=== PATIENT | male | born 1925 | race Hispanic/Latino ===

== ENCOUNTER 2016-11-15 14:37 | Emergency (ER) | payer MEDICARE ==
[2016-11-15 15:18] VITALS: BP 121/84; PULSE 88; RESP 16; TEMP 98.6; O2SAT 98; BMI 24.0
[2016-11-15] MEDS ORDERED: Lidocaine 2% Inj (20ml) INFIL STA (16:14)
[2016-11-15] MEDS ORDERED: TDAP Vaccine 0.5 mL Syr IM ONE (16:14)
[2016-11-15] MEDS ORDERED: Bacitracin 500 Units/gm Oint Foilpak UD TOP ONE (16:14)
--- NOTE | 2016-11-15 16:52 | ED PDOC ---
Arrival/HPI - General Chief Complaint: Abnormal Skin Integrity Time Seen by Provider: 11/15/16 16:14 Historian: Patient - History of Present Illness Narrative History of Present Illness (Text): 11/15/16 17:45 Patient sts he was washing dishes and accidentally cut his left dorsum of thumb with the broken plate. Patient sts he is not UTD with tetanus immunization. Symptom Onset: Sudden Symptom Course: Unchanged Quality: Burning Severity Level: 3 Past Medical History - Provider Review Nursing Documentation Reviewed: Yes - Past History Past History: Non-Contributing - Tetanus Immunization Tetanus Immunization: >10 years Ago - Cardiac Hx Atrial Fibrillation: Yes - Hematological/Oncological Hx Blood Transfusions: Yes Hx Blood Transfusion Reaction: No - Musculoskeletal/Rheumatological Hx Falls: No - Genitourinary/Gynecological Hx Reproductive Disorders: No - Psychiatric Hx Depression: Yes Hx Emotional Abuse: No Hx Physical Abuse: No Hx Substance Use: No - Anesthesia Hx Anesthesia Reactions: No Hx Malignant Hyperthermia: No - Suicidal Assessment Feels Threatened In Home Enviroment: No Family/Social History - Physician Review Nursing Documentation Reviewed: Yes Family/Social History: Unknown Family HX Smoking Status: Never Smoked Hx Alcohol Use: No Hx Substance Use: No Hx Substance Use Treatment: No Allergies/Home Meds Allergies/Adverse Reactions: Allergies No Known Allergies Allergy (Verified 01/16/12 20:41) Home Medications: Home Meds Medication Instructions Recorded Confirmed Metronidazole [Flagyl] 250 mg PO TID 01/16/12 01/16/12 Multimineral/Multivitamin 1 tab PO DAILY 01/16/12 01/16/12 [[facility] Advanced Formula] Acetaminophen [Tylenol] 650 mg PO 01/26/12 01/26/12 Alprazolam [Xanax] 0.25 mg PO Q6 01/26/12 01/26/12 Ondansetron 4 mg PO 01/26/12 01/26/12 Pantoprazole Sodium 40 mg PO 01/26/12 01/26/12 Sotalol Hydrochloride [Sotalol] 80 mg PO 01/26/12 01/26/12 Review of Systems - Physician Review All systems were reviewed & negative as marked: Yes - Review of Systems Skin: Laceration Physical Exam Vital Signs Reviewed: Yes Vital Signs Temp Pulse Resp BP Pulse Ox 11/15/16 15:18 98.6 F 88 16 121/84 98 11/15/16 15:17 98.6 F 88 16 121/84 98 Temperature: Afebrile Blood Pressure: Normal Pulse: Regular Respiratory Rate: Normal Appearance: Positive for: Well-Appearing, Non-Toxic, Comfortable Pain Distress: None Mental Status: Positive for: Alert and Oriented X 3 - Systems Exam Head: Present: Atraumatic, Normocephalic Pupils: Present: PERRL Extroacular Muscles: Present: EOMI Respiratory/Chest: Present: Clear to Auscultation, Good Air Exchange Upper Extremity: Present: Normal ROM, NORMAL PULSES, Neurovascularly Intact, Other (left thumb, dorsum of the proximal phalanx with 1.5 cm linear laceration , no active bleeding, no gross contamination). No: Cyanosis, Edema, Tenderness , Swelling, Erythema Lower Extremity: Present: Normal Inspection Neurological: Present: GCS=15, Speech Normal Skin: Present: Warm, Dry, Normal Color. No: Rashes Psychiatric: Present: Alert, Oriented x 3, Normal Insight, Normal Concentration , Normal Mood Medical Decision Making ED Course and Treatment: 11/15/16 17:56 Wound was closed with suturing. Tetanus immunization was given. Reassessment Condition: Improved - Medication Orders Current Medication Orders: Discontinued Medications Bacitracin (Bacitracin) 1 ea TOP ONCE ONE Stop: 11/15/16 16:15 Last Admin: 11/15/16 16:28 Dose: 1 ea Lidocaine HCl (Lidocaine 2% 20ml Vial) 20 ml INFIL STAT STA Stop: 11/15/16 16:15 Last Admin: 11/15/16 16:28 Dose: 20 ml Tetanus/Reduced Diphtheria/Acell Pertussis (Boostrix Vaccine Inj) 0.5 ml IM .ONCE ONE Stop: 11/15/16 16:15 Last Admin: 11/15/16 16:25 Dose: 0.5 ml Procedure: Wound Repair - Time Out Time Out: Side verified - Consent Obtained Consent obtained: Verbal - Performed by Performed by: Mid-level Provider - Indications Indication(s):: Laceration - Location Location:: Left Finger:: Thumb Shape:: Linear Dimensions Length cm: 1.5 cm - Anesthetic Technique Anesthetic Technique: Regional block Local/Regional Anesthetic:: Lidocaine 2% - Irrigated Irrigated with ml of normal saline: 500 ml - Complexity Complexity:: Simple (one layer) - Wound repair method Sutures:: # (3), Size (4-0), Type (nylon), Technique (interrupted) - Patient tolerated procedure Patient Tolerated Procedure:: Well Disposition/Present on Arrival - Present on Arrival Any Indicators Present on Arrival: No History of DVT/PE: No History of Uncontrolled Diabetes: No Urinary Catheter: No History of Decub. Ulcer: No History Surgical Site Infection Following: None - Disposition Have Diagnosis and Disposition been Completed?: Yes Diagnosis: Finger laceration Disposition: HOME/ ROUTINE Disposition Time: 16:50 Patient Plan: Discharge Condition: IMPROVED Discharge Instructions (ExitCare): Finger Laceration (ED) Additional Instructions: Follow up with PMD within 2-3 days. Return to ED if feel worse. Suture removal in 7-8 days. Prescriptions: Cephalexin [Keflex] 500 mg PO BID #10 capsule Referrals: PCP,NO [Primary Care Provider] - Follow up with primary
== END 2016-11-15 16:58 | disposition home or self-care (01) ==
LOC: ED 14:37
DX: S61.012A Laceration without foreign body of left thumb without damage to nail, initial encounter (principal); W45.8XXA Other foreign body or object entering through skin, initial encounter; Y93.G1 Activity, food preparation and clean up; Y92.89 Other specified places as the place of occurrence of the external cause; Z23 Encounter for immunization

== ENCOUNTER 2016-11-23 15:15 | Emergency (ER) | payer MEDICARE ==
[2016-11-23 15:37] VITALS: BP 124/72; PULSE 82; RESP 16; TEMP 98.6; O2SAT 99; BMI 23.7
--- NOTE | 2016-11-23 15:55 | ED PDOC ---
Arrival/HPI - General Chief Complaint: Suture/Staple Removal Time Seen by Provider: 11/23/16 15:54 Historian: Patient - History of Present Illness Narrative History of Present Illness (Text): 11/23/16 18:23 Patient came to Ed to remove sutures from the left thumb. Sutures were placed on 11/15/2016. Patient has no complains at present time. Past Medical History - Provider Review Nursing Documentation Reviewed: Yes - Past History Past History: Non-Contributing - Tetanus Immunization Tetanus Immunization: >10 years Ago - Cardiac Hx Atrial Fibrillation: Yes - Hematological/Oncological Hx Blood Transfusions: Yes Hx Blood Transfusion Reaction: No - Musculoskeletal/Rheumatological Hx Falls: No - Genitourinary/Gynecological Hx Reproductive Disorders: No - Psychiatric Hx Depression: Yes Hx Emotional Abuse: No Hx Physical Abuse: No Hx Substance Use: No - Anesthesia Hx Anesthesia Reactions: No Hx Malignant Hyperthermia: No - Suicidal Assessment Feels Threatened In Home Enviroment: No Family/Social History Family/Social History: No Known Family HX Smoking Status: Never Smoked Hx Alcohol Use: No Hx Substance Use: No Hx Substance Use Treatment: No Allergies/Home Meds Allergies/Adverse Reactions: Allergies No Known Allergies Allergy (Verified 01/16/12 20:41) Review of Systems - Physician Review All systems were reviewed & negative as marked: Yes - Review of Systems Skin: Other (suture removal) Physical Exam Vital Signs Reviewed: Yes Vital Signs Temp Pulse Resp BP Pulse Ox 11/23/16 15:37 98.6 F 82 16 124/72 99 Temperature: Afebrile Blood Pressure: Normal Pulse: Regular Respiratory Rate: Normal Appearance: Positive for: Well-Appearing, Non-Toxic, Comfortable Mental Status: Positive for: Alert and Oriented X 3 - Systems Exam Upper Extremity: Present: Other (left thumb with healing wound, stiches are intact.) Skin: Present: Warm. No: Rashes, Erythematous Medical Decision Making ED Course and Treatment: 11/23/16 18:25 Sutures (#3) were removed w/o difficulties. Bacitracin cream was applied. Patient was d/c home in stable condition. Disposition/Present on Arrival - Present on Arrival Any Indicators Present on Arrival: No History of DVT/PE: No History of Uncontrolled Diabetes: No Urinary Catheter: No History of Decub. Ulcer: No History Surgical Site Infection Following: None - Disposition Have Diagnosis and Disposition been Completed?: Yes Diagnosis: Visit for suture removal Disposition: HOME/ ROUTINE Disposition Time: 15:55 Patient Plan: Discharge Condition: STABLE Discharge Instructions (ExitCare): Stitches Removal (ED) Additional Instructions: Follow up with PMD as needed. Return to Ed if feel worse. Referrals: PCP,NO [Primary Care Provider] - Follow up with primary Forms: [employer] [facility] (Croatian)
== END 2016-11-23 16:12 | disposition home or self-care (01) ==
LOC: ED 15:15
DX: Z48.02 Encounter for removal of sutures (principal); I48.91 Unspecified atrial fibrillation

== ENCOUNTER 2017-05-20 09:42 | Inpatient (IN) | payer MEDICARE ==
[2017-05-20 11:46] LABS: BASO # 0.06 K/mm3 (0.0-2.0); BASO % 0.5 % (0.0-3.0); EOS # 0.1 (0.0-0.7); EOS % 1.3 % (1.5-5.0); GRAN # 7.63 (1.4-6.5); GRAN % 68.2 % (50.0-68.0); HEMOGLOBIN 11.3 g/dL (14.0-18.0); LYMPH # 1.7 (1.2-3.4); LYMPH % 15.2 % (22.0-35.0); MEAN CELL VOLUME 101.7 fl (80.0-105.0); MEAN CORPUSCULAR HEMOGLOBIN 32.6 pg (25.0-35.0); MONO # 1.7 (0.1-0.6); MONO % 14.8 % (1.0-6.0); RBC 3.47 10^6/uL (3.5-6.1); RED CELL DISTRIBUTION WIDTH 14.2 % (11.5-14.5); WHITE BLOOD COUNT 11.2 10^3/ul (4.5-11.0)
--- NOTE | 2017-05-20 12:05 | RAD ---
HISTORY: Possible CHF COMPARISON: 01/18/2012 FINDINGS: LUNGS: There is some mild crowding at the lung bases. Mild stable interstitial change or scarring is seen in the right upper lobe. No new infiltrate is clearly seen. PLEURA: No significant pleural effusion identified, no pneumothorax apparent. CARDIOVASCULAR: Mildly enlarged heart. Calcific atherosclerotic change of the aorta is stable. OSSEOUS STRUCTURES: No significant abnormalities. VISUALIZED UPPER ABDOMEN: Normal. OTHER FINDINGS: None. IMPRESSION: Stable mild interstitial change or scarring in the right upper lobe. No new infiltrate or CHF.
[2017-05-20 12:17] LABS: INR 1.14 (0.93-1.08); PROTHROMBIN TIME 13.1 SECONDS (9.4-12.5)
[2017-05-20 12:37] LABS: PARTIAL THROMBOPLASTIN TIME 28.7 Seconds (25.1-36.5)
[2017-05-20 12:54] LABS: ALB/GLOB RATIO 1.4 (1.1-1.8); ALBUMIN 4.3 g/dL (3.0-4.8); ALT/SGPT 34 U/L (7-56); AST/SGOT 43 U/L (17-59); BLOOD UREA NITROGEN 16 mg/dL (7-21); CALCIUM 10.1 mg/dL (8.4-10.5); GFR AFRICAN-AMERICAN > 60; GFR NON-AFRICAN AMERICAN 57; TROPONIN I 0.05 ng/mL; URIC ACID 7.2 mg/dL (3.5-8.5)
[2017-05-20 12:57] LABS: B-TYPE NATRIURETIC PEPTIDE 4050 pg/mL (0-450)
[2017-05-20] MEDS ORDERED: cefTRIAXone 1 gm 1 GM/100 ML BAG IVPB STA (14:16)
[2017-05-20] MEDS ORDERED: Vancomycin 1gm in NS 250ml 1 GM/250 ML BAG IVPB STA (14:26)
--- NOTE | 2017-05-20 14:32 | ED PDOC ---
Arrival/HPI - General Historian: Patient <Mary Jo Torres A - Last Filed: 05/20/17 20:38> <Adriana Sandoval - Last Filed: 05/23/17 15:26> - General Chief Complaint: Lower Extremity Problem/Injury Time Seen by Provider: 05/20/17 10:56 - History of Present Illness Narrative History of Present Illness (Text): 05/20/17 14:29 89yo male with PMHx of PVD, hypertension who present with complaint of b/l Lower extremity pain/edema for over a week now. Also report wound on the left lower leg. States pain became worse increasingly. He had Doppler test twice last month, that was negative. He did not take any medication. Denies fever, chills, calf pain, SOB, cough, chest pain, diaphoresis, any other complaint. (Mary Jo Torres A) Past Medical History - Provider Review Nursing Documentation Reviewed: Yes - Past History Past History: Non-Contributing - Infectious Disease Hx of Infectious Diseases: None - Tetanus Immunization Tetanus Immunization: >10 years Ago - Cardiac Hx Atrial Fibrillation: Yes - Hematological/Oncological Hx Blood Transfusions: Yes Hx Blood Transfusion Reaction: No - Musculoskeletal/Rheumatological Hx Falls: No - Genitourinary/Gynecological Hx Reproductive Disorders: No - Psychiatric Hx Depression: Yes Hx Emotional Abuse: No Hx Physical Abuse: No Hx Substance Use: No - Anesthesia Hx Anesthesia Reactions: No Hx Malignant Hyperthermia: No - Suicidal Assessment Feels Threatened In Home Enviroment: No <Mary Jo Torres A - Last Filed: 05/20/17 20:38> Family/Social History - Physician Review Nursing Documentation Reviewed: Yes Family/Social History: Unknown Family HX Smoking Status: Never Smoked Hx Alcohol Use: No Hx Substance Use: No Hx Substance Use Treatment: No <Mary Jo Torres A - Last Filed: 05/20/17 20:38> Allergies/Home Meds <Mary Jo Torres A - Last Filed: 05/20/17 20:38> <Adriana Sandoval - Last Filed: 05/23/17 15:26> Allergies/Adverse Reactions: Allergies No Known Allergies Allergy (Verified 05/20/17 16:33) Home Medications: Home Meds Medication Instructions Recorded Confirmed Aspirin [Ecotrin] 81 mg PO DAILY 05/20/17 05/20/17 Atenolol [Tenormin] 50 mg PO BID 05/20/17 05/20/17 Atenolol/Chlorthalidone 1 tab PO DAILY 05/20/17 05/20/17 [Atenolol-Chlorthalidone 50-25] Ibuprofen [Advil] 200 mg PO PRN PRN 05/20/17 05/20/17 traMADol [Ultram] 50 mg PO PRN PRN 05/20/17 05/20/17 Review of Systems - Physician Review All systems were reviewed & negative as marked: Yes - Review of Systems Constitutional: Normal Eyes: Normal ENT: Normal Respiratory: Normal Cardiovascular: Edema. absent: Chest Pain, Palpitations, Calf Pain, CLEMENT, Orthopnea Gastrointestinal: Normal Genitourinary Male: Normal Musculoskeletal: Arthralgias (B/L LE) Skin: Normal Neurological: Normal Endocrine: Normal Hemo/Lymphatic: Normal Psychiatric: Normal <Diru,Happiness A - Last Filed: 05/20/17 20:38> Physical Exam Vital Signs Reviewed: Yes Temperature: Afebrile Blood Pressure: Normal Pulse: Regular Respiratory Rate: Normal Appearance: Positive for: Well-Appearing, Non-Toxic, Comfortable Pain Distress: None Mental Status: Positive for: Alert and Oriented X 3 - Systems Exam Head: Present: Atraumatic, Normocephalic Pupils: Present: PERRL Extroacular Muscles: Present: EOMI Conjunctiva: Present: Normal Mouth: Present: Moist Mucous Membranes Neck: Present: Normal Range of Motion Respiratory/Chest: Present: Clear to Auscultation, Good Air Exchange. No: Respiratory Distress, Accessory Muscle Use Cardiovascular: Present: Regular Rate and Rhythm, Normal S1, S2. No: Murmurs Abdomen: Present: Normal Bowel Sounds. No: Tenderness, Distention, Peritoneal Signs Back: Present: Normal Inspection Upper Extremity: Present: Normal Inspection. No: Cyanosis, Edema Lower Extremity: Present: Edema (3+ pitting edema b/l), NORMAL PULSES, Tenderness (Anterior lowr leg b/l. Worse on the left), Erythema (Surrounding wound on left lower anterior leg with clear margin). No: CALF TENDERNESS, Mack 's Sign, Temperature Abnormalties Neurological: Present: GCS=15, CN II-XII Intact, Speech Normal Skin: Present: Warm, Dry, Normal Color. No: Rashes Psychiatric: Present: Alert, Oriented x 3, Normal Insight, Normal Concentration <Mary Jo Torres Noris - Last Filed: 05/20/17 20:38> Vital Signs Temp Pulse Resp BP Pulse Ox 05/20/17 16:00 68 18 148/69 96 05/20/17 14:32 155/71 H 05/20/17 14:30 70 18 155/71 H 96 05/20/17 14:15 67 18 116/65 99 05/20/17 12:38 69 18 118/69 99 05/20/17 11:18 75 18 122/71 99 05/20/17 10:10 98.7 F 80 18 136/72 98 05/20/17 09:42 97.9 F 83 17 124/76 99 Medical Decision Making <Mary Jo Torres A - Last Filed: 05/20/17 20:38> <Adriana Sandoval - Last Filed: 05/23/17 15:26> ED Course and Treatment: 05/20/17 20:38 89yo male presented for stated history. He was hemodynamically stable in ED. Mild leukocytosis was noted, which could be secondary to the left lower leg wound/cellulitis. culture pending. BNP was 4050. Pt have no history of CHF. CXR No new CHF/NAD PT was admitted for cellulitis. Lasix 40mg, Rocephin and Vancomycin ordered Case was YOUSUF Mantilla, after no response from Dr. Hale. PT was admitted to the Hospitalist Case was eventually YOUSUF Hale when he came to ED. He plan to change the admission to his name. (BrianMary Jo A) - Lab Interpretations Microbiology Results: Microbiology Results 05/20/17 11:05 Blood-Venous Blood Culture - Preliminary NO GROWTH AFTER 3 DAYS 05/20/17 10:30 Blood-Venous Blood Culture - Preliminary NO GROWTH AFTER 3 DAYS Lab Results: 05/20/17 11:05 05/20/17 11:05 Lab Results 05/20/17 11:05: Sodium 139, Potassium 3.9, Chloride 103, Carbon Dioxide 25, Anion Gap 15, BUN 16, Creatinine 1.2, Est GFR ( Amer) > 60, Est GFR (Non- Af Amer) 57, Random Glucose 125 H, Uric Acid 7.2, Calcium 10.1, Total Bilirubin 1.4 H, AST 43, ALT 34, Alkaline Phosphatase 137 H, Lactate Dehydrogenase 637, Total Creatine Kinase 76, Troponin I 0.05, NT-Pro-B Natriuret Pep 4050 H, Total Protein 7.3, Albumin 4.3, Globulin 3.1, Albumin/Globulin Ratio 1.4 05/20/17 11:05: PT 13.1 H, INR 1.14 H, APTT 28.7 05/20/17 11:05: WBC 11.2 H, RBC 3.47 L, Hgb 11.3 L, Hct 35.3 L, MCV 101.7, MCH 32.6, MCHC 32.0, RDW 14.2, Plt Count 415, MPV 9.0, Gran % 68.2 H, Lymph % (Auto ) 15.2 L, [place] % (Auto) 14.8 H, Eos % (Auto) 1.3 L, Baso % (Auto) 0.5, Gran # 7.63 H, Lymph # 1.7, [place] # 1.7 H, Eos # 0.1, Baso # 0.06 - RAD Interpretation Radiology Orders: 05/20/17 10:57 CHEST PORTABLE [RAD] Stat - Medication Orders Current Medication Orders: Aspirin (Ecotrin) 81 mg PO DAILY [facility] Last Admin: 05/23/17 11:00 Dose: 81 mg Atenolol (Tenormin) 50 mg PO BID [facility] Last Admin: 05/23/17 11:00 Dose: 50 mg MAR Pulse and Blood Pressure Document 05/23/17 11:00 MCV (Rec: 05/23/17 11:01 [id number]) Pulse Pulse Rate (60-90) 74 Blood Pressure Blood Pressure (100/60-150/90) 143/87 Chlorthalidone (Hygroton) 50 mg PO DAILY [facility] Last Admin: 05/23/17 11:00 Dose: 50 mg Heparin Sodium (Porcine) (Heparin) 5,000 units SC Q12 [facility] PRN Reason: Protocol Last Admin: 05/23/17 11:00 Dose: 5,000 units Subcutaneous Administrations Document 05/23/17 11:00 MCV (Rec: 05/23/17 11:00 [id number]) Charges for Administration # of Subcutaneous Administrations 1 Ceftriaxone Sodium (Rocephin 1 Gram Ivpb) 1 gm in 100 mls @ 100 mls/hr IVPB DAILY MARYANNE PRN Reason: Protocol Last Admin: 05/23/17 11:56 Dose: 100 mls/hr eMAR Start Stop Document 05/23/17 11:56 MCV (Rec: 05/23/17 11:56 [facility] [id number]) Intravenous Solution Start Date 05/23/17 Start Time 11:56 Vancomycin HCl (Vancomycin 1gm) 1 gm in 250 mls @ 167 mls/hr IVPB DAILY MARYANNE PRN Reason: Protocol Last Admin: 05/23/17 11:00 Dose: 167 mls/hr eMAR Start Stop Document 05/23/17 11:00 MCV (Rec: 05/23/17 11:00 [facility] [id number]) Intravenous Solution Start Date 05/23/17 Start Time 11:00 Pantoprazole Sodium (Protonix Ec Tab) 40 mg PO 0600 MARYANNE Last Admin: 05/23/17 06:32 Dose: 40 mg Tramadol HCl (Ultram) 50 mg PO Q6H PRN PRN Reason: Pain, moderate (4-7) Last Admin: 05/22/17 23:53 Dose: 50 mg MAR Pain Assessment Document 05/22/17 23:53 KT (Rec: 05/22/17 23:54 KT [id number]) Pain Reassessment Is this a pain reassessment? No Presence of Pain Presence of Pain Yes Location Left, Right or Bilateral Bilateral Upper or Lower Lower Pain Location Body Site Leg Zolpidem Tartrate (Ambien) 5 mg PO HS PRN; Protocol PRN Reason: Insomnia Last Admin: 05/22/17 21:29 Dose: 5 mg Discontinued Medications Acetaminophen (Tylenol 325mg Tab) 650 mg PO STAT STA Stop: 05/22/17 02:53 Last Admin: 05/22/17 03:00 Dose: 650 mg MAR Pain/Vitals Document 05/22/17 03:00 KT (Rec: 05/22/17 03:01 KT [id number]) Presence of Pain Presence of Pain Yes Pain Scale Used Pain Scale Used Numeric Location Left, Right or Bilateral Bilateral Upper or Lower Lower Pain Location Body Site Calf Furosemide (Lasix) 40 mg IVP STAT STA Stop: 05/20/17 14:17 Last Admin: 05/20/17 14:32 Dose: 40 mg MAR Blood Pressure Document 05/20/17 14:32 EQ (Rec: 05/20/17 14:33 [id number][place] Blood Pressure Blood Pressure (100/60-150/90) 155/71 IVP Administration Document 05/20/17 14:32 EQ (Rec: 05/20/17 14:33 EQ [id number]) Charges for Administration # of IVP Administrations 1 Ceftriaxone Sodium (Rocephin 1 Gram Ivpb) 1 gm in 100 mls @ 200 mls/hr IVPB STAT STA PRN Reason: Protocol Stop: 05/20/17 14:45 Last Admin: 05/20/17 14:32 Dose: 200 mls/hr eMAR Start Stop Document 05/20/17 14:32 EQ (Rec: 05/20/17 14:32 EQ [id number]) Intravenous Solution Start Date 05/20/17 Start Time 14:32 Vancomycin HCl (Vancomycin 1gm) 1 gm in 250 mls @ 167 mls/hr IVPB STAT STA PRN Reason: Protocol Stop: 05/20/17 15:55 Last Admin: 05/20/17 15:30 Dose: 167 mls/hr eMAR Start Stop Document 05/20/17 15:30 EQ (Rec: 05/20/17 15:31 EQ [id number]) Intravenous Solution Start Date 05/20/17 Start Time 15:31 Pneumococcal Polyvalent Vaccine (Pneumovax 23 Vaccine) 0.5 ml IM .ONCE ONE Stop: 05/20/17 19:08 - PA / CEMETERY MANAGER / Resident Statement / has reviewed & agrees with the documentation as recorded. <Adriana Sandoval - Last Filed: 05/23/17 15:26> Disposition/Present on Arrival - Present on Arrival Any Indicators Present on Arrival: No History of DVT/PE: No History of Uncontrolled Diabetes: No Urinary Catheter: No History of Decub. Ulcer: No History Surgical Site Infection Following: None - Disposition Have Diagnosis and Disposition been Completed?: Yes Disposition Time: 14:20 <Mary Jo Torres - Last Filed: 05/20/17 20:38> <Adriana Sandoval - Last Filed: 05/23/17 15:26> - Disposition Diagnosis: Edema, Cellulitis Disposition: HOSPITALIZED Patient Problems: Current Active Problems Problem Status Onset Cellulitis Acute Edema Acute Condition: FAIR
[2017-05-20] MEDS: cefTRIAXone 1 gm 1 GM/100 ML BAG IVPB SCH (17:05)
--- NOTE | 2017-05-20 17:21 | CP.PCM.HP ---
<DeanRaheem - Last Filed: 05/20/17 17:18> History of Present Illness - History of Present Illness History of Present Illness: Mr. Adkins is an 89 year old male with a past medical history significant for atrial fibrillation (not on AC), HTN and PVD who presents with bilateral LE edema for one week. Patient reports that one week ago he began to notice that his legs were becoming swollen with no inciting trauma or other event to patients recollection. He reports that since that time, they have been progressively becoming more swollen. He endorses one episode of associated puritis but reports that this only happened once. He denies ever having this before. He endorses chronic claudication but denies any new pain associated with the swelling. He also denies recent travel, immobilization, recent surgery , recent trauma, spending any time in the outdoors, bugs in his home, fever, chills, headache, changes in his vision, rhinorrhea, sore throat, neck pain/ stiffness, chest pain, palpitations, syncope, orthopnea, SOB, cough, wheezing, sputum, hemoptysis, abdominal pain, N/V, diarrhea, constipation, melena, burning /pain with urination, urinary frequency, urinary retention, testicular swelling , penile discharge, or any numbness/tingling/weakness of any extremity. PMH: Atrial Fibrillation (not on AC), HTN and PVD PSH: Denies Family History: Denies any history of HTN, DM2, HLD, SC, CVA or cancer Social History: Denies any tobacco, alcohol or illicit drug use; Retired from [employer] ([employer] ); Lives at home alone; Daughter handles patients affairs Allergies: NKDA Home Medications: As per MAR Present on Admission - Present on Admission Any Indicators Present on Admission: No Review of Systems - Review of Systems Review of Systems: As stated in HPI, otherwise negative Past Patient History - Infectious Disease Hx of Infectious Diseases: None - Tetanus Immunizations Tetanus Immunization: >10 years Ago - Past Social History Smoking Status: Never Smoked - CARDIAC Hx Atrial Fibrillation: Yes - HEMATOLOGICAL/ONCOLOGICAL Hx Blood Transfusions: Yes Hx Blood Transfusion Reaction: No - MUSCULOSKELETAL/RHEUMATOLOGICAL Hx Falls: No - GASTROINTESTINAL Hx Ulcer: Yes - GENITOURINARY/GYNECOLOGICAL Hx Reproductive Disorders: No - PSYCHIATRIC Hx Depression: Yes Hx Emotional Abuse: No Hx Physical Abuse: No Hx Substance Use: No - SURGICAL HISTORY Hx Surgeries: No - ANESTHESIA Hx Anesthesia Reactions: No Hx Malignant Hyperthermia: No Meds Allergies/Adverse Reactions: Allergies Allergy/AdvReac Type Severity Reaction Status Date / Time No Known Allergies Allergy Verified 05/28/17 20:09 Physical Exam - Constitutional Appears: Non-toxic, No Acute Distress - Head Exam Head Exam: ATRAUMATIC, NORMAL INSPECTION, NORMOCEPHALIC - Eye Exam Eye Exam: EOMI, Normal appearance, PERRL. absent: Conjunctival injection, Nystagmus, Periorbital swelling, Periorbital tenderness, Scleral icterus Pupil Exam: NORMAL ACCOMODATION, PERRL. absent: Fixed, Irregular, Miosis, Mydriatic, Unequal - ENT Exam ENT Exam: Mucous Membranes Moist, Normal Exam - Neck Exam Neck exam: Positive for: Full Rom, Normal Inspection. Negative for: Lymphadenopathy, Meningismus, Tenderness, Thyromegaly - Respiratory Exam Respiratory Exam: Clear to Auscultation Bilateral, NORMAL BREATHING PATTERN. absent: Accessory Muscle Use, Chest Wall Tenderness, Decreased Breath Sounds, Prolonged Expiratory Phase, Rales, Rhonchi, Wheezes, Respiratory Distress, Stridor - Cardiovascular Exam Cardiovascular Exam: REGULAR RHYTHM, RRR, +S1, +S2. absent: Bradycardia, Tachycardia, Clicks, Diastolic murmur, Gallop, Irregular Rhythm, JVD, Rubs, +S4 , Systolic Murmur - GI/Abdominal Exam GI & Abdominal Exam: Normal Bowel Sounds, Soft. absent: Bruit, Diminished Bowel Sounds, Distended, Firm, Guarding, Hernia, Hyperactive Bowel Sounds, Hypoactive Bowel Sounds, Mass, Organomegaly, Pulsatile Mass, Rebound, Rigid, Tenderness - Extremities Exam Extremities exam: Positive for: normal capillary refill, pedal edema (2+ pitting edema to mid-calf bilaterally; Abrasion (healing) on LLE approximately 1cm with no erythema, discharge or fluctuance; diffusely scattered small abrasions in linear grouping bilaterally), pedal pulses present. Negative for: calf tenderness, joint swelling, normal inspection, tenderness - Back Exam Back exam: FULL ROM, NORMAL INSPECTION. absent: CVA tenderness (L), CVA tenderness (R), muscle spasm, paraspinal tenderness, rash noted, tenderness, vertebral tenderness - Neurological Exam Neurological exam: Alert, CN II-XII Intact, Normal Gait (Ambulates with the assistance of a cane), Oriented x3, Reflexes Normal - Psychiatric Exam Psychiatric exam: Normal Affect, Normal Mood - Skin Skin Exam: Dry, Intact, Normal Color, Warm Results - Vital Signs Recent Vital Signs: Last Vital Signs Temp 98.7 F 05/20/17 10:10 Pulse 68 05/20/17 16:00 Resp 18 05/20/17 16:00 BP 148/69 05/20/17 16:00 Pulse Ox 96 05/20/17 16:00 - Labs Result Diagrams: 05/20/17 11:05 05/20/17 11:05 Assessment & Plan - Assessment and Plan (Free Text) Assessment: 89 year old male with a past medical history significant for atrial fibrillation (not on AC), HTN and PVD who presents with bilateral LE edema for one week Plan: 1. Bilateral LE Edema -Chest X-Ray showing no signs of CHF, effusions or infiltrates -Patient noted to have a leukocytosis of 11.2 but is afebrile with no tachycardia or tachypnea -BNP elevated at 4050 -Echo and EKG pending -Blood Cultures and Procalcitonin pending -IV Vancomycin and Rocephin for empiric coverage -Elevate edematous areas 2. History of Atrial Fibrillation -Currently not on AC as patient experienced GI bleed while on AC previously -EKG pending 3. History of PVD -Continue home tramadol and ASA 4. History of HTN -Continue Atenolol and Chlorthalidone GI Prophylaxis: Protonix DVT Prophylaxis: Heparin Diet: Heart Healthy Patient seen and case discussed with attending, Dr. Alem Mantilla. - Date & Time Date: 05/20/17 Time: 17:28 <Alem Mantilla B - Last Filed: 05/28/17 20:25> Results - Vital Signs Recent Vital Signs: Last Vital Signs Temp 97.7 F 05/28/17 08:33 Pulse 73 05/28/17 09:21 Resp 18 05/28/17 08:33 BP 132/76 05/28/17 09:21 Pulse Ox 100 05/28/17 08:33 - Labs Result Diagrams: 05/24/17 07:30 05/23/17 07:30 Attending/Attestation - Attestation I have personally seen and examined this patient.: Yes I have fully participated in the care of the patient.: Yes I have reviewed all pertinent clinical information: Yes Notes (Text): I have seen and examined the patient at bedside. Agree with the above note with the following additions/ exceptions: Briefly this is 89 year old male with history of atrial fibrillation not on atincoagulation, HTN and PVD who was admitted for bilateral lower extremity edema and mild bilateral lower extremity cellulitis. Will start empiric antibiotics for now. Discussed plan with patients daughter. Upon discharge patient will follow up with Dr Dacosta.
[2017-05-20 19:07] VITALS: BMI 25.8
[2017-05-20] MEDS ORDERED: Pneumococcal 23-Valent Vaccine IM ONE (19:07)
[2017-05-20] MEDS ORDERED: Influenza Vaccine 60 mcg/0.5 mL SYR (4YR UP) IM ONE (19:07)
--- NOTE | 2017-05-21 02:15 | HP ---
HISTORY OF PRESENT ILLNESS: The patient is an 89-year-old male who was admitted with cellulitis and edema. He presented to the Emergency Room complaining of generalized weakness, extreme pain in his lower extremities. He also admits to increased swelling bilateral leg making it more difficult for him to ambulate over the past 2 weeks. He denies any chest pain, palpitation, or lightheadedness. He denies any trauma to the lower extremities. He was known to have a history of atrial fibrillation for many years. He was on Coumadin, but this was discontinued about 5 years ago when the patient had acute GI bleed secondary to possible alcohol and NSAID use. He also has history of osteoarthritis especially complaining of pain in the knees. SOCIAL HISTORY: He never smoked. He does not drink alcohol anymore. ALLERGIES: HE HAS NO KNOWN MEDICAL ALLERGIES. MEDICATIONS: On admission, his medications included aspirin 81 mg once a day, atenolol 50 mg twice a day, tramadol 50 mg four times a day and ibuprofen 200 mg twice a day p.r.n. The patient is in the Emergency Room with his daughter and the case was discussed with her. REVIEW OF SYSTEMS: Otherwise unremarkable. PHYSICAL EXAMINATION VITAL SIGNS: He is afebrile at 98.7 degree Fahrenheit, blood pressure is 148/59 and heart rate is 68. HEENT: The head, eyes, ears, nose and throat are unremarkable. NECK: Supple, but no lymphadenopathy. No goiter. LUNGS: Clear to auscultation and percussion. HEART: Irregularly irregular. No murmurs are appreciated. ABDOMEN: Soft and nontender with no organomegaly. EXTREMITIES: Reveals a +2 edema from the knees down to the feet. There is a small 1 cm in diameter ulcer in the left pretibial area. The wound appears to be clean and free of infection. NEUROLOGIC: The patient is awake, alert and oriented with no focal neurological signs. LABORATORY STUDIES: Reveals the white blood cell count to be 11.2, hemoglobin and hematocrit are 11.3 and 35.3 respectively and platelet count is 415. Sodium is 139, potassium is 3.9, blood urea nitrogen is 16, creatinine is 1.2 and non-fasting glucose is 125. IMPRESSION AND PLAN: So, the patient is admitted with congestive heart failure, atrial fibrillation, mild cellulitis of the lower extremity. We will be treating the wound with topical Silvadene. We will be treating his congestive heart failure and leg edema with intravenous Lasix. Morning labs are reordered and the patient will be followed closely. Aj Hill MD
[2017-05-21 07:28] LABS: BASO # 0.08 K/mm3 (0.0-2.0); BASO % 0.7 % (0.0-3.0); EOS # 0.2 (0.0-0.7); EOS % 1.7 % (1.5-5.0); GRAN # 7.28 (1.4-6.5); GRAN % 63.2 % (50.0-68.0); HEMOGLOBIN 11.9 g/dL (14.0-18.0); LYMPH # 2.2 (1.2-3.4); LYMPH % 19.3 % (22.0-35.0); MEAN CELL VOLUME 101.9 fl (80.0-105.0); MEAN CORPUSCULAR HEMOGLOBIN 31.8 pg (25.0-35.0); MEAN CORPUSCULAR HGB CONC 31.2 g/dl (31.0-37.0); MEAN PLATELET VOLUME 9.2 fl (7.0-11.0); MONO # 1.7 (0.1-0.6); MONO % 15.1 % (1.0-6.0); RBC 3.74 10^6/uL (3.5-6.1); RED CELL DISTRIBUTION WIDTH 14.3 % (11.5-14.5); WHITE BLOOD COUNT 11.5 10^3/ul (4.5-11.0)
[2017-05-21 07:48] LABS: ALB/GLOB RATIO 1.4 (1.1-1.8); ALBUMIN 4.3 g/dL (3.0-4.8); ALT/SGPT 25 U/L (7-56); AST/SGOT 40 U/L (17-59); BLOOD UREA NITROGEN 20 mg/dL (7-21); GFR AFRICAN-AMERICAN > 60; GFR NON-AFRICAN AMERICAN 52
[2017-05-21] MEDS: cefTRIAXone 1 gm 1 GM/100 ML BAG IVPB SCH (10:48)
[2017-05-21] MEDS: Vancomycin 1gm in NS 250ml 1 GM/250 ML BAG IVPB SCH (10:48)
[2017-05-22] MEDS: Pantoprazole 40 mg EC Tab PO SCH (06:38)
[2017-05-22 08:06] LABS: BASO # 0.11 K/mm3 (0.0-2.0); BASO % 0.9 % (0.0-3.0); EOS # 0.3 (0.0-0.7); EOS % 2.4 % (1.5-5.0); GRAN # 8.1 (1.4-6.5); GRAN % 66.2 % (50.0-68.0); LYMPH # 2.1 (1.2-3.4); LYMPH % 17.2 % (22.0-35.0); MEAN CELL VOLUME 100.6 fl (80.0-105.0); MEAN CORPUSCULAR HEMOGLOBIN 31.5 pg (25.0-35.0); MEAN CORPUSCULAR HGB CONC 31.3 g/dl (31.0-37.0); MEAN PLATELET VOLUME 9.3 fl (7.0-11.0); MONO # 1.6 (0.1-0.6); MONO % 13.3 % (1.0-6.0); RBC 3.49 10^6/uL (3.5-6.1); RED CELL DISTRIBUTION WIDTH 14.1 % (11.5-14.5); WHITE BLOOD COUNT 12.2 10^3/ul (4.5-11.0)
[2017-05-22 08:20] LABS: ALB/GLOB RATIO 1.2 (1.1-1.8); ALBUMIN 3.7 g/dL (3.0-4.8); ALT/SGPT 33 U/L (7-56); AST/SGOT 32 U/L (17-59); BLOOD UREA NITROGEN 21 mg/dL (7-21); CALCIUM 9.7 mg/dL (8.4-10.5); GFR AFRICAN-AMERICAN > 60; GFR NON-AFRICAN AMERICAN > 60
[2017-05-22] MEDS: cefTRIAXone 1 gm 1 GM/100 ML BAG IVPB SCH (10:17)
[2017-05-22] MEDS: Vancomycin 1gm in NS 250ml 1 GM/250 ML BAG IVPB SCH (12:46)
[2017-05-23] MEDS: Pantoprazole 40 mg EC Tab PO SCH (06:32)
[2017-05-23 07:56] LABS: BASO # 0.12 K/mm3 (0.0-2.0); BASO % 0.9 % (0.0-3.0); EOS # 0.6 (0.0-0.7); EOS % 4.2 % (1.5-5.0); GRAN # 8.3 (1.4-6.5); GRAN % 63.8 % (50.0-68.0); HEMOGLOBIN 12.2 g/dL (14.0-18.0); LYMPH # 2.3 (1.2-3.4); LYMPH % 17.4 % (22.0-35.0); MEAN CORPUSCULAR HEMOGLOBIN 31.9 pg (25.0-35.0); MEAN CORPUSCULAR HGB CONC 31.6 g/dl (31.0-37.0); MEAN PLATELET VOLUME 9.2 fl (7.0-11.0); MONO # 1.8 (0.1-0.6); MONO % 13.7 % (1.0-6.0); RBC 3.82 10^6/uL (3.5-6.1)
[2017-05-23 08:22] LABS: ALB/GLOB RATIO 1.4 (1.1-1.8); ALBUMIN 4.2 g/dL (3.0-4.8); ALT/SGPT 30 U/L (7-56); AST/SGOT 41 U/L (17-59); BLOOD UREA NITROGEN 21 mg/dL (7-21); CALCIUM 9.8 mg/dL (8.4-10.5); GFR AFRICAN-AMERICAN > 60; GFR NON-AFRICAN AMERICAN 52
--- NOTE | 2017-05-23 10:00 | PN ---
DATE: 05/22/2017 DAILY PROGRESS NOTE SUBJECTIVE: The patient is an 89-year-old male with a history of atrial fibrillation, who presented to the emergency department on the day of admission complaining of shortness of breath and explained pain in the lower extremities. He was found to have a mild cellulitis in the lower extremities and also marked edema from the knees down. He was admitted and treated with intravenous Lasix with good response. He has also been treated with Rocephin 1 g intravenously q. day. His medications from home are continued, which include aspirin, chlorthalidone, Tenormin, Tramadol as needed for pain. When seen, the patient is in good spirits. He is happy. The edema of the legs has gone down. His lungs are clear. Heart is regular. Vital signs are stable. His white cell count, however, remains elevated at 12.2. Hemoglobin and hematocrit are 11.1 and 35.0. Sodium is 141, potassium is 4.4, blood urea nitrogen is 21, creatinine is 1.1. So we are continuing to diurese the patient. We are continuing with the antibiotics. Ambulation is encouraged. There was a small ulcer on the pretibial area, which is being treated with Silvadene dressings and we are continuing to follow the patient closely. Aj Hill MD
[2017-05-23] MEDS: Vancomycin 1gm in NS 250ml 1 GM/250 ML BAG IVPB SCH (11:00)
[2017-05-23] MEDS: cefTRIAXone 1 gm 1 GM/100 ML BAG IVPB SCH (11:56)
[2017-05-24] MEDS: Pantoprazole 40 mg EC Tab PO SCH (06:39)
[2017-05-24 07:58] LABS: MEAN CELL VOLUME 98.9 fl (80.0-105.0); MEAN CORPUSCULAR HEMOGLOBIN 32.3 pg (25.0-35.0); MEAN CORPUSCULAR HGB CONC 32.6 g/dl (31.0-37.0); MEAN PLATELET VOLUME 9.3 fl (7.0-11.0); RBC 3.72 10^6/uL (3.5-6.1)
[2017-05-24] MEDS: Vancomycin 1gm in NS 250ml 1 GM/250 ML BAG IVPB SCH (09:46)
--- NOTE | 2017-05-24 11:35 | PN ---
DATE: 05/23/2017 SUBJECTIVE: The patient was seen this Monday in room 578, bed 1. He is sitting up in bed, awake, alert, clear and comfortable, although he has one to one monitor with him and was reported today a little confused at night. Now the patient appears well, is enjoying his lunch as we speak. Cellulitis of the leg has markedly improved. The swelling in both legs has improved as well. PHYSICAL EXAMINATION: LUNGS: Show good aeration in right and left. There are no rales, wheezes, or rhonchi. HEART: Regular. Not tachycardic. ABDOMEN: Soft. EXTREMITIES: Show no edema, they are a bit shriveled from recent loss of edema fluid. Erythema is improved. IMPRESSION: 1. Cellulitis. 2. Volume overload congestive heart failure with pedal edema. 3. History of gastrointestinal bleed. 4. Severe arthritis of the knees. PLAN: I spoke with the patient at length. He is amenable to going to the transitional care unit for additional physical therapy for his knees, and overall state of deconditioning. He will also finish the course of antibiotics there, switch to oral antibiotics in the future and follow. Den Hill MD
[2017-05-24] MEDS: cefTRIAXone 1 gm 1 GM/100 ML BAG IVPB SCH (12:33)
--- NOTE | 2017-05-24 16:31 | CARD ---
APPROVED REPORT EXAM: Two-dimensional and M-mode echocardiogram with Doppler and color Doppler. INDICATION LEG EDEMA 2D DIMENSIONS Left Atrium (2D)5.0 (1.6-4.0cm)IVSd1.7 (0.7-1.1cm) LVDd4.4 (3.9-5.9cm)LVOT Diameter2.4 (1.8-2.4cm) PWd1.7 (0.7-1.1cm)LVDs3.3 (2.5-4.0cm) FS (%) 25.8 %LVEF (%)45.0 (>50%) M-Mode DIMENSIONS Aortic Root3.30 (2.2-3.7cm)Aortic Cusp Exc.0.50 (1.5-2.0cm) Aortic Valve AoV Peak Vavnjzdq633.0cm/sAoV VTI68.9cmAO Peak GR.36mmHg LVOT Peak Pvhuxthq77.3cm/sLVOT VTI16.90cmAO Mean GR.21mmHg BAM (VMAX)1.07pq6KJN (VTI)1.33zb0HX P 1/2 Whso029ek Mitral Valve E/A ratio0.0 TDI E/Lateral E'0.0E/Medial E'0.0 Pulmonary Valve PV Peak Tqbqejun51.3cm/sPV Peak Grad.2mmHg Tricuspid Valve TR Peak Fphfjnts288gh/sRAP RWBBEEMR81plGpBU Peak Gr.34mmHg HFNI58piUp LEFT VENTRICLE The left ventricle is normal size. There is moderate concentric left ventricular hypertrophy. The systolic function is mildly impaired. There is global hypokinesis of the left ventricle. No left ventricle thrombus noted on this study. RIGHT VENTRICLE The right ventricle is normal size. There is normal right ventricular wall thickness. The right ventricular systolic function is normal. ATRIA The left atrium is moderately dilated. The right atrium is moderately dilated. AORTIC VALVE The aortic valve is moderately calcified. There is mild aortic regurgitation. There is mild to moderate valvular aortic stenosis. MITRAL VALVE The mitral valve is moderately thickened. Mitral regurgitation is mild. TRICUSPID VALVE There is mild tricuspid regurgitation. There is mild to moderate pulmonary hypertension. PULMONIC VALVE There is mild pulmonic valvular regurgitation. <Conclusion> The left ventricle is normal size. There is moderate concentric left ventricular hypertrophy. The systolic function is mildly impaired. There is global hypokinesis of the left ventricle. The aortic valve is moderately calcified. There is mild to moderate valvular aortic stenosis. There is mild aortic regurgitation. Mitral regurgitation is mild. There is mild tricuspid regurgitation. There is mild to moderate pulmonary hypertension.
[2017-05-25] MEDS: Pantoprazole 40 mg EC Tab PO SCH (06:51)
[2017-05-25] MEDS: Vancomycin 1gm in NS 250ml 1 GM/250 ML BAG IVPB SCH (09:38)
--- NOTE | 2017-05-25 15:16 | PN ---
DATE: 05/24/2017 SUBJECTIVE: The patient is an 89-year-old male with a history of atrial fibrillation who presented to the emergency room complaining of shortness of breath and pain in the lower extremities. He was found to have a mild cellulitis in the lower extremities with marked edema from the knees down. He has been treated with Lasix with good response. He is also treated with Rocephin 1 gram IV daily for his cellulitis. MEDICATIONS: His medications from home which included aspirin, chlorthalidone, Tenormin and Tramadol as needed for pain have been continued. PHYSICAL EXAMINATION GENERAL: When seen, the patient is in good spirits. He is resting comfortably. VITAL SIGNS: Stable. LUNGS: Clear anteriorly. HEART: Irregularly irregular and a controlled ventricular response . LABORATORY DATA: His white blood cell count this morning was 12.0, hemoglobin and hematocrit are 12.0 and 36.8 respectively. At this time, we are awaiting transfer to the transitional care unit for ambulatory rehab and we are continuing to follow the patient closely. Aj Hill MD
[2017-05-26] MEDS: Vancomycin 1gm in NS 250ml 1 GM/250 ML BAG IVPB SCH (10:49)
[2017-05-26] MEDS: Cefpodoxime (Vantin) 200 mg Tab PO SCH ×2 (10:50→21:36)
--- NOTE | 2017-05-27 08:59 | PN ---
DATE: 05/26/2017 The patient was seen this Monday morning in room 578, bed 1. He is sitting on the bed, comfortable, in no acute distress. He is in good spirits, very pleased that his leg edema have decreased so much. His leg pain has subsided and gone completely, but there is still significant arthritis pain in bilateral knees. I spoke with him about transitional care unit for additional physical therapy. He is very much looking forward to this. The case was reviewed with social media marketing specialist, case management, and nurse practitioner. We are waiting for bed on TCU as soon as possible. Den Hill MD
[2017-05-27] MEDS: Cefpodoxime (Vantin) 200 mg Tab PO SCH (10:00)
--- NOTE | 2017-05-27 11:31 | PN ---
DATE: 05/25/2017 SUBJECTIVE: Camilo is in room 578, bed 1 this morning. I spoke with shelter case manager, nurse practitioner and the staff on the telemetry in the Transitional Care Unit. The patient is slated for additional physical therapy at [facility]. Physical therapy consult is called. He will benefit tremendously because of the severe arthritis of the knees. His cellulitis has improved. His leg edema has improved, and he is ready for transfer very soon within the next few days to [facility]. Den Hill MD
--- NOTE | 2017-05-27 22:21 | CP.PCM.PN ---
Subjective - Date & Time of Evaluation Date of Evaluation: 05/27/17 Time of Evaluation: 22:18 - Subjective Subjective: Refusing to go to TCU. Patient was seen at bedside. States that his PMD did not tell him that he is going to Transitional Care Unit. VSS. 5:15 PM / 64 9834*F 98 % on RA. He is more confused as per nurse. Agitated. Medical record was reviewed. This 89 year old white male was admitted with cellulitis/edema. Has PMH of HTN ,CHF, GERD arthritis, cardiac arrythmia-atrial fibrillation, GI bleeding, alcohol use, NSAID use. Objective - Vital Signs/Intake and Output Vital Signs (last 24 hours): Temp Pulse Resp BP Pulse Ox 98.4 F 64 20 116/68 98 05/27/17 16:00 05/27/17 17:16 05/27/17 16:00 05/27/17 17:16 05/27/17 16:00 Intake and Output: 05/27/17 05/28/17 18:59 06:59 Intake Total 760 Balance 760 - Medications Medications: Current Medications Aspirin (Ecotrin) 81 mg PO DAILY [facility] Last Admin: 05/27/17 10:00 Dose: 81 mg Atenolol (Tenormin) 50 mg PO BID [facility] Last Admin: 05/27/17 17:16 Dose: 50 mg Chlorthalidone (Hygroton) 50 mg PO DAILY [facility] Last Admin: 05/27/17 10:00 Dose: 50 mg Heparin Sodium (Porcine) (Heparin) 5,000 units SC Q12 MARYANNE PRN Reason: Protocol Last Admin: 05/27/17 21:47 Dose: 5,000 units Pantoprazole Sodium (Protonix Ec Tab) 40 mg PO 0600 [facility] Last Admin: 05/25/17 06:51 Dose: 40 mg Tramadol HCl (Ultram) 50 mg PO Q6H PRN PRN Reason: Pain, moderate (4-7) Last Admin: 05/24/17 20:56 Dose: 50 mg Zolpidem Tartrate (Ambien) 5 mg PO HS PRN; Protocol PRN Reason: Insomnia Last Admin: 05/24/17 22:17 Dose: 5 mg - Labs Labs: 05/24/17 07:30 05/23/17 07:30 PT 13.1 SECONDS (9.4-12.5) H 05/20/17 11:05 INR 1.14 (0.93-1.08) H 05/20/17 11:05 APTT 29.7 Seconds (25.1-36.5) 05/21/17 06:15 Micro Results 05/20/17 11:05 Blood-Venous Blood Culture - Final NO GROWTH AFTER 5 DAYS 05/20/17 11:05 Blood-Venous Gram Stain - Final TEST NOT PERFORMED 05/20/17 10:30 Blood-Venous Blood Culture - Final NO GROWTH AFTER 5 DAYS 05/20/17 10:30 Blood-Venous Gram Stain - Final TEST NOT PERFORMED Most Recent Lab Values WBC 12.0 10^3/ul (4.5-11.0) H 05/24/17 07:30 RBC 3.72 10^6/uL (3.5-6.1) 05/24/17 07:30 Hgb 12.0 g/dL (14.0-18.0) L 05/24/17 07:30 Hct 36.8 % (42.0-52.0) L 05/24/17 07:30 MCV 98.9 fl (80.0-105.0) 05/24/17 07:30 MCH 32.3 pg (25.0-35.0) 05/24/17 07:30 MCHC 32.6 g/dl (31.0-37.0) 05/24/17 07:30 RDW 14.0 % (11.5-14.5) 05/24/17 07:30 Plt Count 451 10^3/uL (120.0-450.0) H 05/24/17 07:30 MPV 9.3 fl (7.0-11.0) 05/24/17 07:30 Gran % 63.8 % (50.0-68.0) 05/23/17 07:30 Lymph % (Auto) 17.4 % (22.0-35.0) L 05/23/17 07:30 Nuckolls % (Auto) 13.7 % (1.0-6.0) H 05/23/17 07:30 Eos % (Auto) 4.2 % (1.5-5.0) 05/23/17 07:30 Baso % (Auto) 0.9 % (0.0-3.0) 05/23/17 07:30 Gran # 8.30 (1.4-6.5) H 05/23/17 07:30 Lymph # 2.3 (1.2-3.4) 05/23/17 07:30 Nuckolls # 1.8 (0.1-0.6) H 05/23/17 07:30 Eos # 0.6 (0.0-0.7) 05/23/17 07:30 Baso # 0.12 K/mm3 (0.0-2.0) 05/23/17 07:30 PT 13.1 SECONDS (9.4-12.5) H 05/20/17 11:05 INR 1.14 (0.93-1.08) H 05/20/17 11:05 APTT 29.7 Seconds (25.1-36.5) 05/21/17 06:15 Sodium 140 mmol/L (132-148) 05/23/17 07:30 Potassium 4.4 mmol/L (3.6-5.0) 05/23/17 07:30 Chloride 102 mmol/L (98-107) 05/23/17 07:30 Carbon Dioxide 26 mmol/L (21-33) 05/23/17 07:30 Anion Gap 16 (10-20) 05/23/17 07:30 BUN 21 mg/dL (7-21) 05/23/17 07:30 Creatinine 1.3 mg/dl (0.8-1.5) 05/23/17 07:30 Est GFR ( Amer) > 60 05/23/17 07:30 Est GFR (Non-Af Amer) 52 05/23/17 07:30 Random Glucose 123 mg/dL (70-110) H 05/23/17 07:30 Uric Acid 7.2 mg/dL (3.5-8.5) 05/20/17 11:05 Calcium 9.8 mg/dL (8.4-10.5) 05/23/17 07:30 Total Bilirubin 1.1 mg/dL (0.2-1.3) 05/23/17 07:30 AST 41 U/L (17-59) 05/23/17 07:30 ALT 30 U/L (7-56) 05/23/17 07:30 Alkaline Phosphatase 109 U/L (38-126) 05/23/17 07:30 Lactate Dehydrogenase 637 U/L (333-699) 05/20/17 11:05 Total Creatine Kinase 76 U/L (35-230) 05/20/17 11:05 Troponin I 0.05 ng/mL 05/20/17 11:05 NT-Pro-B Natriuret Pep 4050 pg/mL (0-450) H 05/20/17 11:05 Total Protein 7.3 g/dL (5.8-8.3) 05/23/17 07:30 Albumin 4.2 g/dL (3.0-4.8) 05/23/17 07:30 Globulin 3.1 gm/dL 05/23/17 07:30 Albumin/Globulin Ratio 1.4 (1.1-1.8) 05/23/17 07:30 Procalcitonin < 0.05 NG/ML (0.19-0.49) L 05/20/17 14:30 - Constitutional Appears: Well, No Acute Distress - Head Exam Head Exam: ATRAUMATIC, NORMAL INSPECTION, NORMOCEPHALIC - Eye Exam Eye Exam: Normal appearance - ENT Exam ENT Exam: Normal External Ear Exam - Neck Exam Neck Exam: Normal Inspection - Respiratory Exam Respiratory Exam: NORMAL BREATHING PATTERN - Cardiovascular Exam Cardiovascular Exam: absent: JVD - GI/Abdominal Exam GI & Abdominal Exam: absent: Distended - Rectal Exam Rectal Exam: Deferred - Exam Additional comments: Deferred. - Extremities Exam Extremities Exam: Normal Inspection - Back Exam Back Exam: NORMAL INSPECTION - Neurological Exam Neurological Exam: Altered - Psychiatric Exam Psychiatric exam: Agitated - Skin Skin Exam: Normal Color Assessment and Plan - Assessment and Plan (Free Text) Assessment: Agitation. HTN. CHF. GERD. Atrial fibrillation. Leukocytosis. Anemia. Plan: Nurse gave him ambien as per order. Continue present management as per PMD.
[2017-05-28] MEDS: Pantoprazole 40 mg EC Tab PO SCH (05:38)
[2017-05-28 05:53] VITALS: RESP 18
[2017-05-28 08:33] VITALS: PULSE 73; TEMP 97.7; O2SAT 100
[2017-05-28 09:29] VITALS: BP 132/76
--- NOTE | 2017-05-28 12:55 | PN ---
DATE: 05/27/2017 SUBJECTIVE: Patient was seen this Monday morning, in room 578, bed 1. He is sitting at the edge of the bed, comfortable, in no acute disease. Leg edema and leg erythema has markedly improved. ASSESSMENT AND PLAN: He is awaiting for transfer to the Transitional Care Unit until the bed will be available later this afternoon. So discharge order was placed. Medications reviewed and I will follow him on TCU. Aggressive physical therapy for severe osteoarthritis of both knees. Den Hill MD
--- NOTE | 2017-05-29 09:30 | DS ---
HISTORY OF PRESENT ILLNESS: This is an 89-year-old male who presented here with acute care facility of [facility] with several days of worsening leg edema followed by excoriations, erythema, pain, and swelling, volume overload, anasarca was noted bilaterally with cellulitis. The patient was admitted to the medical floor, treated with IV antibiotics and aggressive diuresis. PAST MEDICAL HISTORY: Significant for atrial fibrillation and severe arthritis of the both knees for, which he has had multiple different orthopedic consultations and opinions, knee replacement surgery, but the patient has resisted. COURSE OF HOSPITAL STAY: He responded well nicely to antibiotics and diuretics. Arrangements were made for him to transferred to Transitional Care Unit, but unfortunately, there was no bed available so his stay was delayed on the medical floor until late Monday night to Monday morning when he was discharged. FINAL DISCHARGE DIAGNOSES: 1. Cellulitis of the both lower extremities. 2. Congestive heart failure anasarca. 3. Atrial fibrillation. 4. Severe osteoarthritis of the knees. PLAN: We will follow the patient in Transitional Care. Antibiotics were finished and we will continue diuretics and aggressive physical therapy. Den Hill MD [email or web address]
== END 2017-05-28 09:57 | DRG 603 ==
LOC: ED 09:42 → ERH 14:27 → 5RSO 16:49
PROVIDERS: ADMIT Internal Medicine; ATTEND Internal Medicine
DX: L03.116 Cellulitis of left lower limb (principal); I11.0 Hypertensive heart disease with heart failure; I50.9 Heart failure, unspecified; I48.91 Unspecified atrial fibrillation; L03.115 Cellulitis of right lower limb; M17.0 Bilateral primary osteoarthritis of knee; I73.9 Peripheral vascular disease, unspecified; K21.9 Gastro-esophageal reflux disease without esophagitis; D64.9 Anemia, unspecified; Z79.82 Long term (current) use of aspirin

== ENCOUNTER 2017-05-28 09:57 | Inpatient (IN) | payer OTHER, MEDICARE ==
[2017-05-29] MEDS: Pantoprazole 40 mg EC Tab PO SCH (05:30)
[2017-05-29 07:20] LABS: BASO # 0.11 K/mm3 (0.0-2.0); BASO % 1.2 % (0.0-3.0); EOS # 0.2 (0.0-0.7); EOS % 2.5 % (1.5-5.0); GRAN # 6.09 (1.4-6.5); GRAN % 65.6 % (50.0-68.0); HEMOGLOBIN 11.4 g/dL (14.0-18.0); LYMPH # 1.4 (1.2-3.4); LYMPH % 14.8 % (22.0-35.0); MEAN CELL VOLUME 100.3 fl (80.0-105.0); MEAN CORPUSCULAR HEMOGLOBIN 31.5 pg (25.0-35.0); MEAN CORPUSCULAR HGB CONC 31.4 g/dl (31.0-37.0); MEAN PLATELET VOLUME 9.4 fl (7.0-11.0); MONO # 1.5 (0.1-0.6); MONO % 15.9 % (1.0-6.0); RBC 3.62 10^6/uL (3.5-6.1); RED CELL DISTRIBUTION WIDTH 13.9 % (11.5-14.5); WHITE BLOOD COUNT 9.3 10^3/ul (4.5-11.0)
[2017-05-29 07:45] LABS: BLOOD UREA NITROGEN 32 mg/dL (7-21); CALCIUM 9.5 mg/dL (8.4-10.5); GFR AFRICAN-AMERICAN > 60; GFR NON-AFRICAN AMERICAN 57
[2017-05-30] MEDS: Pantoprazole 40 mg EC Tab PO SCH (05:06)
[2017-05-30 11:18] VITALS: RESP 18
[2017-05-31] MEDS: Pantoprazole 40 mg EC Tab PO SCH (05:28)
--- NOTE | 2017-05-31 07:21 | PN ---
DATE: 05/30/2017 SUBJECTIVE: The patient was seen this Monday in the Transitional Care Unit and is out of bed for lunch. He is in good spirit. Offered ortho re eval but pt. declined. PHYSICAL EXAMINATION GENERAL: Awake and alert, in no acute distress, in no pain. HEENT: Head and neck are unremarkable. LUNGS: Clear. HEART: Irregular in atrial fibrillation. EXTREMITIES: Cellulitis has improved dramatically. Erythema and edema is gone. ASSESSMENT AND PLAN: 1. Deconditioning. 2. Severe osteoarthritis of the knees. 3. Cellulitis, resolving. 4. Congestive heart failure. 5. Atrial fibrillation. 6. Severe gastrointestinal bleed, when anticoagulated in the past. Den Hill MD MTDMinda
[2017-06-01] MEDS: Pantoprazole 40 mg EC Tab PO SCH (06:08)
--- NOTE | 2017-06-02 00:08 | PN ---
DATE: 06/01/2017 SUBJECTIVE: The patient was seen this principal gifts officer in the Transitional Care Unit. He is ambulating in the wu with physical therapist and doing rather well, although tired he is now taking rest. I spoke with the patient at length regarding his progress. He is looking forward to continued improvement, although does complain of a cough. I will add some Tessalon Perles and perhaps begin the Z-Terry for outpatient upper respiratory infection with cough. We will follow. Den Hill MD
[2017-06-02] MEDS: Pantoprazole 40 mg EC Tab PO SCH (05:42)
[2017-06-03] MEDS: Pantoprazole 40 mg EC Tab PO SCH (06:20)
[2017-06-04] MEDS: Pantoprazole 40 mg EC Tab PO SCH (05:54)
--- NOTE | 2017-06-04 14:11 | CP.PCM.CON ---
History of Present Illness - History of Present Illness History of Present Illness: 89 y/o male with PMHx of atrial fibrillation, OA and bilateral lower extremity edema with cellulitis seen at bedside for bilateral lower extremity foot dryness. Pt denies having any history of foot pain, ulcers or infections. Pt denies a history of diabetes. He states the feet do not bother him but that they do get very dry and the skin starts to flake off. Has no other pedal complaints. Denies F/C/N/V/CP/SOB Review of Systems - Review of Systems All systems: reviewed and no additional remarkable complaints except (per HPI) Past Patient History - Infectious Disease Hx of Infectious Diseases: None - Tetanus Immunizations Tetanus Immunization: >10 years Ago - Past Social History Smoking Status: Never Smoked - CARDIAC Hx Cardiac Disorders: Yes Hx Hypertension: Yes - HEMATOLOGICAL/ONCOLOGICAL Hx Blood Disorders: Yes Hx AIDS: No Hx Anemia: Yes (BLOOD TRANSFUSION) Hx Cancer: No - INTEGUMENTARY Hx Dermatological Problems: Yes (BILATERAL LE CELLULITIS 05-19-17) - MUSCULOSKELETAL/RHEUMATOLOGICAL Hx Arthritis: Yes - GASTROINTESTINAL Hx Gastrointestinal Disorders: Yes (GI BLEED) Hx Ulcer: Yes - GENITOURINARY/GYNECOLOGICAL Hx Reproductive Disorders: No - PSYCHIATRIC Hx Depression: Yes Hx Emotional Abuse: No Hx Physical Abuse: No - SURGICAL HISTORY Hx Surgeries: No - ANESTHESIA Hx Anesthesia Reactions: No Hx Malignant Hyperthermia: No Meds Allergies/Adverse Reactions: Allergies Allergy/AdvReac Type Severity Reaction Status Date / Time No Known Allergies Allergy Verified 05/28/17 20:09 - Medications Medications: Current Medications Aspirin (Ecotrin) 81 mg PO 0800 MARYANNE PRN Reason: Protocol Last Admin: 06/04/17 07:42 Dose: 81 mg Atenolol (Tenormin) 50 mg PO BID MARYANNE PRN Reason: Protocol Last Admin: 06/04/17 10:02 Dose: 50 mg Azithromycin (Zithromax) 250 mg PO DAILY MARYANNE PRN Reason: Protocol Last Admin: 06/04/17 10:02 Dose: 250 mg Benzonatate (Tessalon Perles) 100 mg PO TID MARYANNE Last Admin: 06/04/17 10:02 Dose: 100 mg Chlorthalidone (Hygroton) 50 mg PO DAILY MARYANNE PRN Reason: Protocol Last Admin: 06/04/17 10:02 Dose: 50 mg Heparin Sodium (Porcine) (Heparin) 5,000 units SC 0600,1800 MARYANNE PRN Reason: Protocol Last Admin: 06/04/17 05:53 Dose: 5,000 units Lactic Acid (Lac-Hydrin 12% Cream (140 G)) 0 ea TOP BID MARYANNE Pantoprazole Sodium (Protonix Ec Tab) 40 mg PO 0600 MARYANNE PRN Reason: Protocol Last Admin: 06/04/17 05:54 Dose: 40 mg Tramadol HCl (Ultram) 50 mg PO Q6H PRN; Protocol PRN Reason: Pain, moderate (4-7) Last Admin: 06/04/17 12:54 Dose: 50 mg Zolpidem Tartrate (Ambien) 5 mg PO HS PRN; Protocol PRN Reason: Insomnia Physical Exam - Constitutional Appears: Well, Non-toxic, No Acute Distress - Extremities Exam Additional comments: Lower extremity focused examination: Vasc: DP/PT pulses palpable 1/4 B/L. Temperature gradient warm to cool. No pedal edema noted at this time -per chart review, bilateral lower extremity edema appears to have resolved. CFT < 3 sec to all digits Derm: No erythema or cellulitic changes noted to bilateral lower extremities. Nails cut to hygienic length x 10. Plantar xerosis with annular scaling noted B/ L. No open lesions or clinical signs of infection Neuro: Protective sensation grossly intact Ortho: No tenderness noted to bilateral lower extremities. No tenderness to posterior calf palpation B/L - Neurological Exam Neurological exam: Alert, Oriented x3 - Psychiatric Exam Psychiatric exam: Normal Affect, Normal Mood Results - Vital Signs Recent Vital Signs: Last Vital Signs Temp 97.8 F 06/04/17 10:27 Pulse 80 06/04/17 10:27 Resp 18 06/04/17 10:27 BP 127/68 06/04/17 10:27 Pulse Ox 98 06/04/17 10:27 - Labs Result Diagrams: 05/29/17 07:00 05/29/17 07:00 Assessment & Plan - Assessment and Plan (Free Text) Assessment: 89 y/o male with 1) bilateral lower extremity edema and cellulitis, resolved and 2) bilateral plantar xerosis with tinea pedis Plan: Pt seen and evaluated at bedside Discussed plan with attending Dr. Centeno Labs and vitals reviewed - afebrile, no leukocytosis No clinical suspicion of active lower extremity infection at this time Rx Amlactin and Clotrimazole to be applied to bilateral feet BID Pt stable from podiatry standpoint Pt to follow up with Dr. Centeno as needed upon discharge
[2017-06-04 16:21] VITALS: TEMP 98.2; O2SAT 99
[2017-06-04] MEDS: Clotrimazole 1% Cream(30 gm) TOP SCH (17:22)
[2017-06-04] MEDS: Ammonium Lactate 12% Cream (140 g) TOP SCH (17:22)
[2017-06-05] MEDS: Pantoprazole 40 mg EC Tab PO SCH (05:09)
[2017-06-05] MEDS: Clotrimazole 1% Cream(30 gm) TOP SCH (11:00)
[2017-06-05] MEDS: Ammonium Lactate 12% Cream (140 g) TOP SCH (11:00)
[2017-06-05 11:20] VITALS: BP 108/69; PULSE 65
== END 2017-06-05 13:17 | disposition home or self-care (01) | DRG 603 ==
LOC: TRCU 09:57
PROVIDERS: ADMIT Internal Medicine; ATTEND Internal Medicine
PROC: F07Z9FZ Gait Training/Functional Ambulation Treatment using Assistive, Adaptive, Supportive or Protective Equipment (ICD-10-PCS; principal; 2017-05-29)
PROC: F08Z4FZ Home Management Treatment using Assistive, Adaptive, Supportive or Protective Equipment (ICD-10-PCS; 2017-05-29)
DX: L03.116 Cellulitis of left lower limb (principal); L03.115 Cellulitis of right lower limb; I11.0 Hypertensive heart disease with heart failure; I50.9 Heart failure, unspecified; I48.91 Unspecified atrial fibrillation; B35.3 Tinea pedis; L85.3 Xerosis cutis; M17.0 Bilateral primary osteoarthritis of knee; J06.9 Acute upper respiratory infection, unspecified